=== PATIENT | male | born 1970 | race Caucasian/White ===

== ENCOUNTER 2024-09-08 01:32 | Observation (INO) | payer SELFPAY ==
[~2024-09-08] VITALS: Ht 193 cm; Wt 108.9 kg
[2024-09-08] VITALS (8 sets, daily range): BP systolic 145–164; BP diastolic 85–97; PULSE 76–93; RESP 16–18; TEMP 97.6–98.5; O2SAT 96–100
[2024-09-08 02:04] LABS: BASOPHILS % 0.4 % (0.0-1.0); EOSINOPHILS % 0.7 % (0.0-6.0); LYMPHOCYTES % 25.3 % (18.0-39.1); MONOCYTES % 11.1 % (4.4-11.3); NEUTROPHILS % 62.2 % (38.7-80.0); RED CELL DISTRIBUTION WIDTH 12.1 % (11.7-14.4)
[2024-09-08 02:18] LABS: EST GLOMERULAR FILTRATION RATE 81.0 ML/MIN (>=60)
[2024-09-08] MEDS ORDERED: IOPAMIDOL 370 MG/ML 100 ML INFUS..BTL INJ ONE (02:38)
[2024-09-08 02:48] LABS: LEUKOCYTE ESTERASE ,URINE NEGATIVE (NEGATIVE); PROTEIN,URINE DIPSTICK NEGATIVE (NEGATIVE); URINE UROBILINOGEN 0.2 mg/dL (0.2 - 1)
[2024-09-08] MEDS: SODIUM CHLORIDE 0.9% 1000ML 1,000 ML IV ONE (03:06)
[2024-09-08] MEDS: ONDANSETRON HCL INJ 2MG/ML 2ML 2 MG/ML VIAL IV STA (03:07)
[2024-09-08] MEDS: FAMOTIDINE 20 MG/2 ML VIAL IV STA (03:07)
[2024-09-08] MEDS: SUCRALFATE 1 GM TAB PO STA (03:07)
[2024-09-08 03:18] LABS: EPITHELIAL CELLS,URINE FEW /LPF; WBC,URINE (MAN) 0-5 /HPF (0-5)
[2024-09-08] MEDS: SODIUM CHLORIDE 0.9% 1000ML 1,000 ML IV SCH (04:47)
[2024-09-08] MEDS: KETOROLAC TROMETHAMINE 30 MG/ML VIAL IV PRN (04:47)
[2024-09-08] MEDS ORDERED: NEURONTIN400 MG PO (05:38)
[2024-09-08] MEDS ORDERED: SEROQUEL100 MG PO (05:39)
[2024-09-08] MEDS: ONDANSETRON HCL INJ 2MG/ML 2ML 2 MG/ML VIAL IV PRN (08:02)
[2024-09-08] MEDS: PROMETHAZINE 12.5MG/ NACL 0.9% 12.5 MG/50 ML BAG IV ONE (11:44)
[2024-09-08] MEDS: MULTIVITAMINS- 12 INJECTION 10 ML, FOLIC ACID MDV 1 MG, THIAMINE HCL INJ 100 MG in SODI... IV ONE (12:23)
[2024-09-08] MEDS: LORAZEPAM INJ 2 MG/ML VIAL IV PRN (16:16)
[2024-09-09] MEDS: LACTATED RINGER'S 1,000 ML INJ SCH (01:32)
[2024-09-09 03:10] VITALS: BP 161/74; PULSE 56; RESP 18; TEMP 97.6; O2SAT 95
[2024-09-09 05:53] LABS: BASOPHILS % 0.8 % (0.0-1.0); EOSINOPHILS % 1.4 % (0.0-6.0); LYMPHOCYTES % 29.9 % (18.0-39.1); MONOCYTES % 12.1 % (4.4-11.3); NEUTROPHILS % 55.6 % (38.7-80.0); RED CELL DISTRIBUTION WIDTH 11.9 % (11.7-14.4)
[2024-09-09 06:28] LABS: EST GLOMERULAR FILTRATION RATE 102.0 ML/MIN (>=60)
[2024-09-09 07:42] VITALS: BP 160/98; PULSE 68; RESP 18; TEMP 97.6; O2SAT 99
[2024-09-09 08:45] VITALS: BP 160/98; PULSE 68; RESP 18; TEMP 97.6; O2SAT 99
[2024-09-09 11:30] VITALS: BP 161/87; PULSE 71; RESP 18; TEMP 97.5; O2SAT 100
[2024-09-09] MEDS ORDERED: FAMOTIDINE20 MG PO (13:52)
[2024-09-09] MEDS ORDERED: CHLORDIAZEPOXID25 MG PO (13:56)
== END 2024-09-09 14:40 | disposition home or self-care (01) ==
LOC: ER 01:35 → ERHOLD 03:39 → MED/SURG2 04:36
PROVIDERS: ADMIT Internal Medicine; ATTEND Internal Medicine
DX: K86.0 Alcohol-induced chronic pancreatitis (principal); F10.10 Alcohol abuse, uncomplicated; Y90.7 Blood alcohol level of 200-239 mg/100 ml; F19.10 Other psychoactive substance abuse, uncomplicated
CPT/HCPCS: 36415; 74177; 80053; 80320; 81001; 83690; 83735; 85025; 99284; G0378; J1308; J1885; J2060; J2405; J2470; J2550; J3411; J7030; Q9967

== ENCOUNTER 2024-09-10 03:34 | Emergency (ER) | payer SELFPAY ==
[~2024-09-10] VITALS: Ht 193 cm; Wt 108.9 kg
[~2024-09-10 03:34] MED LIST: CHLORDIAZEPOXID25 MG PO; FAMOTIDINE20 MG PO; NEURONTIN400 MG PO; SEROQUEL100 MG PO
[2024-09-10 04:00] LABS: BASOPHILS % 0.5 % (0.0-1.0); EOSINOPHILS % 1.7 % (0.0-6.0); LYMPHOCYTES % 33.5 % (18.0-39.1); MONOCYTES % 10.2 % (4.4-11.3); NEUTROPHILS % 53.6 % (38.7-80.0); RED CELL DISTRIBUTION WIDTH 12.0 % (11.7-14.4)
[2024-09-10 04:24] LABS: EST GLOMERULAR FILTRATION RATE 82.0 ML/MIN (>=60)
[2024-09-10 04:40] VITALS: PULSE 82; RESP 23; TEMP 97.6
[2024-09-10 05:10] VITALS: BP 107/65; PULSE 82; RESP 23; TEMP 97.6; O2SAT 95
== END 2024-09-10 05:42 | disposition home or self-care (01) ==
LOC: ER 03:59
DX: R07.89 Other chest pain (principal); F10.10 Alcohol abuse, uncomplicated; I10 Essential (primary) hypertension; R10.30 Lower abdominal pain, unspecified; F32.A Depression, unspecified; F43.10 Post-traumatic stress disorder, unspecified; K85.90 Acute pancreatitis without necrosis or infection, unspecified; F17.210 Nicotine dependence, cigarettes, uncomplicated; Z71.6 Tobacco abuse counseling; Z91.148 Patient's other noncompliance with medication regimen for other reason; Z71.89 Other specified counseling; Z88.8 Allergy status to other drugs, medicaments and biological substances
CPT/HCPCS: 36415; 71045; 80053; 83690; 84484; 85025; 93005; 99284

== ENCOUNTER 2024-09-25 13:53 | Emergency (ER) | payer SELFPAY ==
[~2024-09-25] VITALS: Ht 193 cm; Wt 108.9 kg
[2024-09-25 14:03] VITALS: TEMP 98.4
[2024-09-25] MEDS: SODIUM CHLORIDE 0.9% 1000ML 1,000 ML IV ONE (14:19)
[2024-09-25] MEDS: KETOROLAC TROMETHAMINE 30 MG/ML VIAL IV STA (14:19)
[2024-09-25] MEDS: ONDANSETRON HCL INJ 2MG/ML 2ML 2 MG/ML VIAL IV STA (14:19)
[2024-09-25 14:22] LABS: BASOPHILS % 0.4 % (0.0-1.0); EOSINOPHILS % 1.6 % (0.0-6.0); LYMPHOCYTES % 30.1 % (18.0-39.1); MONOCYTES % 19.2 % (4.4-11.3); NEUTROPHILS % 48.1 % (38.7-80.0); RED CELL DISTRIBUTION WIDTH 12.5 % (11.7-14.4)
[2024-09-25 14:41] LABS: EST GLOMERULAR FILTRATION RATE 75.0 ML/MIN (>=60)
[2024-09-25] MEDS: SUCRALFATE 1 GM TAB PO STA (15:17)
[2024-09-25] MEDS: FAMOTIDINE 20 MG/2 ML VIAL IV STA (15:17)
[2024-09-25 15:42] VITALS: PULSE 65; RESP 19
[2024-09-25] MEDS ORDERED: CARAFATE1 GM PO (16:31)
[2024-09-25 16:50] VITALS: BP 129/80; PULSE 62; RESP 13; TEMP 98.4; O2SAT 95
== END 2024-09-25 16:52 | disposition home or self-care (01) ==
LOC: ER 13:57
DX: R10.13 Epigastric pain (principal); K29.20 Alcoholic gastritis without bleeding; R11.2 Nausea with vomiting, unspecified; I25.2 Old myocardial infarction; F43.10 Post-traumatic stress disorder, unspecified
CPT/HCPCS: 36415; 74177; 80053; 80320; 83690; 85025; 99284; J1308; J1885; J2405; J7030

== ENCOUNTER 2024-09-26 10:15 | Emergency (ER) | payer SELFPAY ==
[~2024-09-26] VITALS: Ht 175.3 cm; Wt 117.9 kg
[~2024-09-26 10:15] MED LIST changes: +CARAFATE1 GM PO
[2024-09-26 10:32] VITALS: PULSE 78; RESP 16; TEMP 98.7; O2SAT 98
[2024-09-26 10:45] LABS: BASOPHILS % 0.8 % (0.0-1.0); EOSINOPHILS % 1.3 % (0.0-6.0); LYMPHOCYTES % 30.8 % (18.0-39.1); MONOCYTES % 15.0 % (4.4-11.3); NEUTROPHILS % 51.6 % (38.7-80.0); RED CELL DISTRIBUTION WIDTH 12.3 % (11.7-14.4)
[2024-09-26 11:14] LABS: ETHANOL 145.2 mg/dL (0.0-10.0)
[2024-09-26 11:15] LABS: EST GLOMERULAR FILTRATION RATE 92.0 ML/MIN (>=60)
== END 2024-09-26 11:12 | disposition left against medical advice (07) ==
LOC: ER 10:21
DX: R11.2 Nausea with vomiting, unspecified (principal); K86.0 Alcohol-induced chronic pancreatitis; R10.13 Epigastric pain; F43.10 Post-traumatic stress disorder, unspecified; I25.2 Old myocardial infarction
CPT/HCPCS: 36415; 80053; 80320; 83690; 85025; 99283